=== PATIENT | female | born 1995 | race Caucasian/White ===

== ENCOUNTER 2023-06-14 18:01 | Emergency (ER) | payer OTHER ==
[2023-06-14] MEDS ORDERED: NAPROXEN 500 MG TABLET ONE (18:15)
[2023-06-14] MEDS ORDERED: NAPROXEN 500 MG TABLET PO ONE (18:19)
[2023-06-14 18:22] VITALS: BP 121/71; PULSE 102; RESP 20; TEMP 99.3; BMI 23.8
== END 2023-06-14 18:38 | disposition home or self-care (01) ==
LOC: FER 18:01
DX: M79.604 Pain in right leg (principal); R22.41 Localized swelling, mass and lump, right lower limb; L02.415 Cutaneous abscess of right lower limb; L03.115 Cellulitis of right lower limb; R50.9 Fever, unspecified
CPT/HCPCS: 99284-25

== ENCOUNTER 2023-06-17 11:47 | Emergency (ER) | payer OTHER ==
[2023-06-17 12:07] VITALS: BP 120/85; PULSE 100; RESP 16; TEMP 98.7; BMI 25.4
== END 2023-06-17 12:35 | disposition home or self-care (01) ==
LOC: FER 11:47
DX: Z48.00 Encounter for change or removal of nonsurgical wound dressing (principal); L52 Erythema nodosum; R50.9 Fever, unspecified; R22.31 Localized swelling, mass and lump, right upper limb
CPT/HCPCS: 99282-25